=== PATIENT | male | born 1960 | race Caucasian/White ===

== ENCOUNTER 2019-01-01 17:51 | Emergency (ER) | payer MEDICAID, OTHER, SELFPAY ==
[~2019-01-01] VITALS: Ht 177.8 cm; Wt 99.0 kg
--- NOTE | 2019-01-01 18:20 | REPVR ---
EXAM: CT Head Without Contrast EXAM DATE/TIME: 01/01/2019 6:04 PM CLINICAL HISTORY: 58 years old, male; Signs and symptoms; Other: CVA symptoms; Additional info: ? CVA symptoms TECHNIQUE: Imaging protocol: Axial computed tomography images of the head/brain without contrast. Radiation optimization: All CT scans at this facility use at least one of these dose optimization techniques: automated exposure control; mA and/or kV adjustment per patient size (includes targeted exams where dose is matched to clinical indication); or iterative reconstruction. Other technique: STROKE PROTOCOL was implemented. COMPARISON: No relevant prior studies available. FINDINGS: Brain: Mild periventricular and deep white matter hypodensities are suggestive of chronic microvascular ischemic changes. There is age-related diffuse cortical atrophy with compensatory ventricular and sulcal enlargement. There is no intracranial hemorrhage. Ventricles: Normal. No ventriculomegaly. Bones/joints: Unremarkable. No acute fracture. Sinuses: Visualized sinuses are unremarkable. No acute sinusitis. Mastoid air cells: Visualized mastoid air cells are unremarkable. No mastoid effusion. Soft tissues: Unremarkable. Vasculature: Intracranial vascular calcifications are present. IMPRESSION: No acute intracranial abnormality. ASSESSMENT: ASPECTS ([place] Stroke Program Early CT Score) is 10. Electronically signed by: Beverly Shea On 01/01/2019 18:20:06 PM
[2019-01-01] MEDS ORDERED: ISOVUE-370 76% 100ML VIAL (Q9967) As Ordered ONE (18:40)
[2019-01-01 18:43] LABS: BASO # 0.1 10^3/uL (0.0-0.2); BASO % 0.6 % (0.0-1.0); EOS # 0.2 10^3/uL (0.0-0.50); HEMATOCRIT 50.3 % (42.0-52.0); HEMOGLOBIN 17.8 g/dl (13.5-17.5); LYMPH # 2.8 10^3/uL (1.5-4.5); LYMPH % 28.2 % (24.0-44.0); MEAN CORPUSCULAR HEMOGLOBIN 32.4 pg (27.0-33.0); MEAN CORPUSCULAR HGB CONC 35.4 g/dl (32.0-36.5); MEAN CORPUSCULAR VOLUME 91.5 fl (80.0-96.0); MONO # 0.7 10^3/uL (0.0-0.8); MONO % 7.3 % (0.0-5.0); NEUTROPHILS # 6.2 10^3/uL (1.8-7.7); NEUTROPHILS % 61.6 % (36.0-66.0); PLATELET COUNT, AUTOMATED 269 10^3/uL (150-450); WHITE BLOOD COUNT 10.1 10^3/uL (4.0-10.0)
[2019-01-01 18:52] LABS: INR 1.04; PROTHROMBIN TIME 13.7 SECONDS (12.1-14.4)
[2019-01-01 18:53] LABS: PARTIAL THROMBOPLASTIN TIME 30.9 SECONDS (25.4-37.6)
[2019-01-01] MEDS ORDERED: LISI10TA4 PO (18:55)
[2019-01-01 19:09] LABS: BLOOD UREA NITROGEN 13 MG/DL (7-18); CALCIUM LEVEL 9.3 MG/DL (8.5-10.1); CARBON DIOXIDE LEVEL 27 MEQ/L (21-32); CHLORIDE LEVEL 104 MEQ/L (98-107); CPK CREATINE PHOSPHOKINASE 129 U/L (39-308); CREATININE FOR GFR 0.95 MG/DL (0.70-1.30); GLOMERULAR FILTRATION RATE > 60.0 (>56); GLUCOSE, FASTING 98 MG/DL (70-100); MB/CK RELATIVE INDEX 1.71 (< OR =4); POTASSIUM SERUM 3.9 MEQ/L (3.5-5.1); SODIUM LEVEL 137 MEQ/L (136-145); TROPONIN I < 0.02 NG/ML (< 0.10)
[2019-01-01 19:13] VITALS: BP 188/100
--- NOTE | 2019-01-01 19:37 | REPVR ---
EXAM: CT Chest With Contrast EXAM DATE/TIME: 01/01/2019 6:38 PM CLINICAL HISTORY: 58 years old, male; Chest pain; Additional info: RO lvo TECHNIQUE: Imaging protocol: Axial computed tomography images of the chest with intravenous contrast. Coronal and sagittal reformatted images were created and reviewed. 3D rendering: MIP reconstructed images were created and reviewed. Radiation optimization: All CT scans at this facility use at least one of these dose optimization techniques: automated exposure control; mA and/or kV adjustment per patient size (includes targeted exams where dose is matched to clinical indication); or iterative reconstruction. Contrast material: ISOVUE 370; Contrast volume: 100 ml; Contrast route: IV; COMPARISON: No relevant prior studies available. FINDINGS: Lungs: There is bilateral centrilobular and paraseptal emphysema. Biapical pleural-parenchymal scarring is noted. There is minimal dependent atelectasis posteriorly. Pleural space: No pleural effusion or pneumothorax. Heart: The heart is normal. There is left ventricular hypertrophy. There is no pericardial effusion. Aorta: Normal. No aortic aneurysm. Lymph nodes: Calcified subcarinal and hilar lymph nodes are noted. Bones/joints: There are degenerative changes of the thoracic line. There is no acute fracture. Mild compression deformity of the T6 vertebral body is chronic in appearance. There is a deformity of the lower sternum which also appears chronic/posttraumatic. There is a remote fracture of the right posterior-lateral seventh rib. Soft tissues: Unremarkable. Kidneys and ureters: There is a subcentimeter hypodensity in the left kidney which is too small to accurately characterize. IMPRESSION: 1. No acute abnormality of the chest. 2. Centrilobular and paraseptal emphysema with biapical pleural-parenchymal scarring. No acute consolidative process. Electronically signed by: Beverly Shea On 01/01/2019 19:36:17 PM
--- NOTE | 2019-01-01 19:38 | REPVR ---
EXAM: CT Angiography Neck With Contrast EXAM DATE/TIME: 01/01/2019 6:38 PM CLINICAL HISTORY: 58 years old, male; Signs and symptoms; Weakness; Additional info: Left wkness TECHNIQUE: Imaging protocol: Axial computed tomographic angiography images of the neck with intravenous contrast using CT angiography protocol. Coronal and sagittal reformatted images were created and reviewed. 3D rendering: MIP and 3D reconstructed images were created and reviewed. Radiation optimization: All CT scans at this facility use at least one of these dose optimization techniques: automated exposure control; mA and/or kV adjustment per patient size (includes targeted exams where dose is matched to clinical indication); or iterative reconstruction. Contrast material: ISOVUE 370; Contrast volume: 100 ml; Contrast route: IV; COMPARISON: No relevant prior studies available. FINDINGS: VASCULATURE: Right common carotid artery: Normal. No significant stenosis. No dissection or occlusion. Right internal carotid artery: . There is mild atherosclerotic plaque with less than 50% stenosis. No dissection or occlusion. Right external carotid artery: Normal. No occlusion or significant stenosis. Right vertebral artery: Normal. No significant stenosis. No dissection or occlusion. Left common carotid artery: Normal. No significant stenosis. No dissection or occlusion. Left internal carotid artery: There is mild to moderate atherosclerotic plaque with approximately 50% stenosis. No dissection or occlusion. Left external carotid artery: Normal. No occlusion or significant stenosis. Left vertebral artery: Normal. No significant stenosis. No dissection or occlusion. NECK: Bones/joints: No acute fracture. Mucous retention cysts of the left maxillary sinus. There is multilevel cervical degenerative disc disease. Soft tissues: Normal. No significant soft tissue swelling. Lungs: There is centrilobular emphysema of the lung apices with biapical pleural-parenchymal scarring. IMPRESSION: 1. No acute findings. 2. Moderate (approximately 50%) stenosis of the left internal carotid artery. 3. Mild (less than 50%) stenosis of the right internal carotid artery. COMMENT: Reference per NASCET criteria for degree of stenosis: Mild: less than 50% stenosis. Moderate: 50-69% stenosis. Severe: 70-94% stenosis. Near occlusion: 95-99% stenosis. Electronically signed by: Beverly Shae On 01/01/2019 19:36:26 PM
--- NOTE | 2019-01-01 19:41 | REPVR ---
EXAM: CT Angiography Head With Contrast EXAM DATE/TIME: 01/01/2019 6:38 PM CLINICAL HISTORY: 58 years old, male; Signs and symptoms; Weakness; Additional info: RO lvo TECHNIQUE: Imaging protocol: Axial computed tomographic angiography images of the head with intravenous contrast using CT angiography protocol. Coronal and sagittal reformatted images were created and reviewed. 3D rendering: MIP and 3D reconstructed images were created and reviewed. Radiation optimization: All CT scans at this facility use at least one of these dose optimization techniques: automated exposure control; mA and/or kV adjustment per patient size (includes targeted exams where dose is matched to clinical indication); or iterative reconstruction. Contrast material: ISOVUE 370; Contrast volume: 100 ml; Contrast route: IV; COMPARISON: CT Head without contrast 01/01/2019 6:02 PM FINDINGS: Right internal carotid artery: Minimal atherosclerotic calcification of the cavernous segment. Intracranial segment is patent with no significant stenosis. No aneurysm. Right anterior cerebral artery: Unremarkable. No occlusion or significant stenosis. No aneurysm. Right middle cerebral artery: Unremarkable. No occlusion or significant stenosis. No aneurysm. Right posterior cerebral artery: Unremarkable. No occlusion or significant stenosis. No aneurysm. Right vertebral artery: Unremarkable. No occlusion or significant stenosis. No aneurysm. Left internal carotid artery: Minimal atherosclerotic calcification of the cavernous segment. Intracranial segment is patent with no significant stenosis. No aneurysm. Left anterior cerebral artery: Unremarkable. No occlusion or significant stenosis. No aneurysm. Left middle cerebral artery: Unremarkable. No occlusion or significant stenosis. No aneurysm. Left posterior cerebral artery: There is significant attenuation of the left posterior cerebral artery beyond the P2 segment. Left vertebral artery: Unremarkable. No occlusion or significant stenosis. No aneurysm. Basilar artery: Unremarkable. No occlusion or significant stenosis. No aneurysm. IMPRESSION: 1. There is significant low-attenuation in the left [employer] beyond the P2 segment consistent with severe, flow limiting stenosis. 2. Minimal atherosclerotic disease of the cavernous ICAs, but otherwise no significant abnormality of the anterior circulation. Electronically signed by: Beverly Shea On 01/01/2019 19:41:04 PM
--- NOTE | 2019-01-01 19:49 | REP ---
PORTABLE CHEST: AP portable view of the chest was performed. There are no prior studies for comparison. There is mild biapical pleural and parenchymal scarring with mild bibasilar interstitial fibrotic change. I see no acute infiltrate. The heart is not enlarged. The mediastinal silhouette is otherwise unremarkable. Old right rib fracture is noted. IMPRESSION: Chronic findings. No acute infiltrate. Electronically Signed by Hebert Pinto MD 01/03/2019 10:00 A
--- NOTE | 2019-01-02 23:09 | ECGEPIP ---
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
== END 2019-01-01 19:16 | disposition short-term general hospital (02) ==
LOC: M ED 17:51
DX: I63.9 Cerebral infarction, unspecified (principal); I10 Essential (primary) hypertension; R29.704 NIHSS score 4; Z85.118 Personal history of other malignant neoplasm of bronchus and lung; Z85.818 Personal history of malignant neoplasm of other sites of lip, oral cavity, and pharynx; Z85.820 Personal history of malignant melanoma of skin; F17.210 Nicotine dependence, cigarettes, uncomplicated; Z79.899 Other long term (current) drug therapy
CPT/HCPCS: 36415; 70450; 70496; 70498; 71045; 71260; 80048; 82550; 82553; 85025; 85610; 85730; 86850; 86900; 86901; 93005; 93041; 94760; 99285; Q9967

== ENCOUNTER 2019-01-03 11:35 | Inpatient (IN) | payer MEDICAID, OTHER, SELFPAY ==
[~2019-01-03] VITALS: Ht 177.8 cm; Wt 97.5 kg
[~2019-01-03 11:35] MED LIST: LISI10TA4 PO
[2019-01-03] MEDS ORDERED: EXCETAB33 PO (11:43)
[2019-01-03 12:17] LABS: BASO % 0.4 % (0.0-1.0); EOS # 0.1 10^3/uL (0.0-0.50); EOS % 0.9 % (0.0-3.0); HEMATOCRIT 49.9 % (42.0-52.0); HEMOGLOBIN 17.7 g/dl (13.5-17.5); LYMPH # 2.7 10^3/uL (1.5-4.5); LYMPH % 23.3 % (24.0-44.0); MEAN CORPUSCULAR HEMOGLOBIN 32.7 pg (27.0-33.0); MEAN CORPUSCULAR HGB CONC 35.5 g/dl (32.0-36.5); MEAN CORPUSCULAR VOLUME 92.2 fl (80.0-96.0); MONO # 0.6 10^3/uL (0.0-0.8); MONO % 5.5 % (0.0-5.0); NEUTROPHILS # 7.9 10^3/uL (1.8-7.7); NEUTROPHILS % 69.5 % (36.0-66.0); PLATELET COUNT, AUTOMATED 262 10^3/uL (150-450); RED BLOOD COUNT 5.41 10^6/uL (4.30-6.10); WHITE BLOOD COUNT 11.4 10^3/uL (4.0-10.0)
--- NOTE | 2019-01-03 12:43 | REP ---
CT Head without contrast HISTORY: Neurologic symptoms COMPARISON: 01/01/2019 An area of decreased attenuation is present in the posteromedial left temporal lobe posterior left parietal and left occipital lobes. There is mass effect with partial effacement of the overlying cortical sulci and atrium and occipital horn of the left lateral ventricle. This represents an acute infarction. There is no intraparenchymal hemorrhage, mass or midline shift. The ventricular system is normal in appearance. There is no extra cerebral collection. There is no fracture. The visualized sinuses are clear. IMPRESSION: Acute left temporal parietal occipital lobe infarction. There is no hemorrhage. Electronically Signed by Ron Jeter MD 01/03/2019 12:35 P
[2019-01-03 12:46] LABS: INR 1.2; PROTHROMBIN TIME 15.4 SECONDS (12.1-14.4)
[2019-01-03 12:47] LABS: PARTIAL THROMBOPLASTIN TIME 31.2 SECONDS (25.4-37.6)
[2019-01-03 12:53] LABS: BLOOD UREA NITROGEN 20 MG/DL (7-18); CALCIUM LEVEL 9.2 MG/DL (8.5-10.1); CARBON DIOXIDE LEVEL 25 MEQ/L (21-32); CHLORIDE LEVEL 102 MEQ/L (98-107); CPK CREATINE PHOSPHOKINASE 89 U/L (39-308); GLOMERULAR FILTRATION RATE > 60.0 (>56); GLUCOSE, FASTING 144 MG/DL (70-100); MB/CK RELATIVE INDEX 1.24 (< OR =4); POTASSIUM SERUM 3.9 MEQ/L (3.5-5.1); SODIUM LEVEL 138 MEQ/L (136-145)
[2019-01-03 12:54] LABS: TROPONIN I < 0.02 NG/ML (< 0.10)
[2019-01-03] MEDS ORDERED: NICOTINE 21MG/24HR 1 EA TRANSDERMAL TD ONE (14:00)
[2019-01-03] MEDS ORDERED: ASPIRIN 325 MG TAB PO ONE (14:15)
--- NOTE | 2019-01-03 16:07 | HPE ---
DATE OF ADMISSION: 01/03/2019 PRIMARY CARE PROVIDER: None. Patient recently moved from [place] to [place] since December last year. HISTORY OF PRESENT ILLNESS: The patient is a 58-year-old gentleman with a past medical history significant for hypertension, throat cancer, lung cancer, who presented to [facility] on 01/01/2019 around 6 p.m. with neurological symptoms. At the time, patient was found to have acute stroke, and patient was transferred to [facility] for further evaluation and treatment; however, patient signed himself out around 6 hours later. Patient presented to [facility] on 01/03/2019 due to persistence of the left-sided visual changes. CT imaging was performed. Patient was found to have acute left-sided cerebrovascular accident (CVA), and the hospitalist team was called for admission. According to patient, patient used to follow with a primary care provider in [place]. Patient has a history of lung cancer and throat cancer. He does not remember if there was a biopsy performed in the past, and patient denies any surgical intervention in the past. Patient denied any chemotherapy in the past. At the time of encounter, patient did complain about the right visual field disturbance, and it has been persistent since January 01. Denied any other neurological changes. Denied any acute complaints. PAST MEDICAL HISTORY: 1. Hypertension. 2. Throat cancer. 3. Lung cancer. PAST SURGICAL HISTORY: None. ALLERGIES: None. HOME MEDICATIONS: Lisinopril and as-needed hydrocodone. SOCIAL HISTORY: Smokes one to two packs daily for more than 40 years. Drinks alcohol occasionally. Denied recreational drug use. REVIEW OF SYSTEMS: GENERAL: No fever. No chills. HEENT: No new onset of headache. Denied any head trauma. CARDIOVASCULAR: No chest pain. No palpitations. RESPIRATORY: No shortness of breath. No cough. No sputum production. GASTROINTESTINAL: No nausea. No vomiting. No abdominal pain. No diarrhea. MUSCULOSKELETAL: Denied muscle pain or joint pain. NEUROLOGIC: Patient complained about new onset of right-sided visual field disturbance. It started since January 01 and no improvement since. Denied any new neurological changes. OBJECTIVE: VITAL SIGNS: Temperature is 98.2, pulse is 95, respirations 20, blood pressure 139/88, pulse oximetry 96% in room air. GENERAL: Patient is alert and awake, comfortable. HEENT: Normocephalic, atraumatic. Extraocular motor grossly intact. CARDIOVASCULAR: Positive S1, S2, regular rate. LUNGS: Clear to auscultation bilaterally. ABDOMEN: Soft, nontender, nondistended. Bowel sounds present. EXTREMITIES: No edema appreciated. 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 The right medial visual field is intact. Sensation to fine touch grossly intact. Muscle strength 5/5. Cranial nerves II-XII grossly intact. LABORATORY DATA: WBC 11.4, hemoglobin 17.7, hematocrit 47.9, platelet count is 262. Sodium is 138, potassium 3.9, chloride 102, carbon dioxide 25, BUN 20, creatinine 1.1, GFR greater than 60, fasting glucose 144, calcium 9.2. Total CK is 89, troponin I is less than 0.02. PT is 15.4, INR 12.2. IMAGING STUDIES: CT of the head without contrast from 01/03/2019 demonstrated acute left temporoparietal occipital lobe infarction. No hemorrhages. CT angiogram of the neck from 01/01/2019 demonstrated no acute findings. Moderate stenosis of the left internal carotid artery. Mild stenosis of the right internal carotid artery. 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 CT of the chest with contrast on 01/01/2019 demonstrated no acute abnormality of the chest. Centrolobular and paraseptal emphysema with biapical pleural parenchymal scarring. No acute consolidative process. ASSESSMENT AND PLAN: 1. Acute left temporoparietal occipital lobe infarction. Patient will be admitted under the hospitalist service in the progressive care unit (PCU) under inpatient status. MRI/MRA are ordered. Neurology consulted. Patient received aspirin in the emergency room. Followup with echocardiogram. Continue cardiac telemetry. According to patient, patient does have a history of lung cancer and throat cancer. Will try to verify the details of the information. Patient also has a significant tobacco abuse history. Followup with liver panel. 2. Hypertension. At baseline patient is receiving lisinopril. Due to acute stroke, will hold the blood pressure medication at this moment. 3. Hypertension. Blood pressure medication will be on hold. 4. Tobacco abuse. Nicotine patch ordered. 5. Deep vein thrombosis (DVT) prophylaxis, on heparin.
[2019-01-03 16:15] LABS: CHOLESTEROL LEVEL 228 MG/DL (<200); HDL CHOLESTEROL 40 MG/DL (>40); LDL CHOLESTEROL 157 MG/DL (<100); NON-HDL-C 188 MG/DL; TRIGLYCERIDES LEVEL 156 MG/DL (<150)
--- NOTE | 2019-01-03 17:04 | REP ---
CAROTID ULTRASOUND: Real-time ultrasound evaluation and duplex Doppler interrogation of the extracranial carotid vasculature is performed. There is mild plaquing and narrowing in both carotid bulbs extending into the internal and external carotid arteries. Luminal narrowing is less than 50%. There is no evidence of hemodynamically significant stenosis of either internal carotid artery. Normal flow velocities are seen. The vertebral arteries demonstrate normal direction of flow. RIGHT LEFT Peak systolic velocity ICA 75.9 cm/s 73.5 cm/s End diastolic velocity ICA 29.6 cm/s 26.6 cm/s Peak systolic velocity CCA 77.1 cm/s 107 cm/s Peak systolic velocity ECA 68.1 cm/s 90.2 cm/s ICA/CCA ratio 1.0 0.7 IMPRESSION: Bilateral luminal narrowing of the internal carotid arteries less than 50%. No evidence of hemodynamically significant stenosis. Electronically Signed by Hebert Pinto MD 01/03/2019 04:56 P
--- NOTE | 2019-01-03 17:28 | REP ---
MRA BRAIN WITHOUT CONTRAST: HISTORY: Infarction. 3D [id number] MR angiography was performed at the level of the [facility] [place]. COMPARISON: CTA 01/01/2019 There is no aneurysm or arteriovenous malformation. Mild atherosclerotic disease involves the cavernous internal carotid arteries. There is loss of the normal hyperintense signal in the proximal P2 segment of the left posterior cerebral artery. This is consistent with severe stenosis. The remaining major intracranial vessels are patent. The left vertebral artery is dominant. IMPRESSION: 1. There is no aneurysm or arteriovenous malformation. 2. There is loss of the normal hyperintense signal in the proximal P2 segment of the left posterior cerebral artery consistent with severe stenosis. There is no change compared to the previous study. Electronically Signed by Ron Jeter MD 01/03/2019 05:30 P
--- NOTE | 2019-01-03 17:36 | REP ---
MR BRAIN WITHOUT CONTRAST: HISTORY: Infarction. COMPARISON: CT 01/03/2019 Increased signal intensity on diffusion and T2 weighted images is present in the inferomedial left temporal lobe, posterior left parietal lobe, left occipital lobe and left thalamus. This is decreased in signal intensity on ADC images and is consistent with an acute infarction. There is no hemorrhage. There is mass effect with partial effacement of the overlying cortical sulci and atrium and occipital horn of the left lateral ventricle. Areas of increased signal intensity on T2 weighted images are present in the periventricular and subcortical white matter. This represents small vessel ischemic disease. There is no intraparenchymal hemorrhage, mass or midline shift. The ventricular system is normal in appearance. There is no extracerebral collection. A retention cyst is present in the left maxillary sinus. IMPRESSION:1. Acute left temporal, parietal and occipital lobe and left thalamic infarction. There is no hemorrhage or midline shift. 2. Small vessel ischemic disease. Electronically Signed by Ron Jeter MD 01/03/2019 05:38 P
[2019-01-03] MEDS: HEPARIN SOD (PORCINE) 5000 UNITS/ML VIAL SC SCH (22:00)
--- NOTE | 2019-01-03 22:17 | ECGEPIP ---
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
[2019-01-04] MEDS: HEPARIN SOD (PORCINE) 5000 UNITS/ML VIAL SC SCH (05:59)
[2019-01-04 07:53] LABS: HEMATOCRIT 51.9 % (42.0-52.0); HEMOGLOBIN 17.9 g/dl (13.5-17.5); MEAN CORPUSCULAR HEMOGLOBIN 31.9 pg (27.0-33.0); MEAN CORPUSCULAR HGB CONC 34.5 g/dl (32.0-36.5); MEAN CORPUSCULAR VOLUME 92.5 fl (80.0-96.0); PLATELET COUNT, AUTOMATED 259 10^3/uL (150-450); RED BLOOD COUNT 5.61 10^6/uL (4.30-6.10); WHITE BLOOD COUNT 8.3 10^3/uL (4.0-10.0)
[2019-01-04 08:16] LABS: BLOOD UREA NITROGEN 17 MG/DL (7-18); CARBON DIOXIDE LEVEL 23 MEQ/L (21-32); CHLORIDE LEVEL 106 MEQ/L (98-107); CREATININE FOR GFR 0.98 MG/DL (0.70-1.30); GLOMERULAR FILTRATION RATE > 60.0 (>56); GLUCOSE, FASTING 119 MG/DL (70-100); SODIUM LEVEL 136 MEQ/L (136-145)
[2019-01-04] MEDS: NICOTINE 21MG/24HR 1 EA TRANSDERMAL TD SCH (09:00)
[2019-01-04] MEDS: ASPIRIN 81 MG CHEW TABLET PO SCH (09:10)
[2019-01-04] MEDS: ATORVASTATIN 20 MG TAB PO SCH (09:12)
--- NOTE | 2019-01-04 15:00 | IPN ---
DATE: 01/04/2019 SUBJECTIVE: Patient is seen and examined in the room today. Patient still has a right visual field complaint of blindness. Denies any other neurological symptoms. OBJECTIVE: VITAL SIGNS: Temperature is 97.7, pulse is 87, respiratory rate 20, blood pressure is 139/84, pulse oximetry is 95% in room air. GENERAL: Patient is alert and awake, comfortable. HEENT: Normocephalic, atraumatic. Extraocular motor grossly intact. CARDIOVASCULAR: Positive S1, S2, regular rate. LUNGS: Clear to auscultation bilaterally. ABDOMEN: Soft, nontender. Bowel sounds present. EXTREMITIES: No edema. NEUROLOGICAL: Patient has a compromised right temporal visual field and compromised left medial visual field. Muscle strength grossly intact. Sensation to fine touch grossly intact. LABORATORY DATA: WBC 8.3, hemoglobin 17.9, hematocrit 51.9, platelet count is 259. Sodium is 136, potassium 4, chloride 106, carbon dioxide 23, BUN 17, creatinine 0.98, GFR greater than 60, fasting glucose 119, calcium is 9, magnesium 2. ASSESSMENT AND PLAN: 1. Acute left temporoparietal and occipital lobe and left thalamic infarct. Patient is continued on the cardiac telemetry. MRA of the brain demonstrates acute left temporoparietal and occipital lobe and left thalamic infarct. No hemorrhages or midline shift. MRA of the brain without contrast demonstrates loss of normal hyperintense signal in the proximal P2 segment of the left posterior cerebral artery (HR ANALYST) consistent with severe stenosis. Discussed with neurologist. Due to the severe stenosis of the HR ANALYST, patient will need to be on aspirin and Plavix. Patient will continue with the physical therapy. Patient should not be driving due to the right visual field compromise. 2. History of hypertension. Currently, patient is not on blood pressure medications. Blood pressure in the satisfactory range. 3. History of throat and lung cancer. History obtained from the patient. We do not have a prior record. Outpatient record requested. During this admission, patient did have a CT chest with contrast. Patient was found to have bilateral central lobular and paraseptal emphysema but no nodule or masses noted. Patient does have calcified subcarinal and hilar lymph nodes. Recommend continue outpatient followup. 4. Tobacco abuse. Nicotine patch ordered. 5. Deep vein thrombosis (DVT) prophylaxis, on heparin.
[2019-01-04 16:27] VITALS: BP 149/90
--- NOTE | 2019-01-04 17:00 | CR ---
DATE OF CONSULTATION: 01/04/2019 REASON FOR CONSULTATION: Acute stroke. REFERRING PROVIDER: Dr. Bouchra Mathis HISTORY OF PRESENT ILLNESS: Ga Cummings is a 58-year-old male with a past medical history significant for hypertension, history of throat cancer status post resection, history of lung cancer. The patient presented to [facility] on 01/01/2019 around 5:50 p.m. with stroke symptom onset of 1 p.m.. The patient was transferred from [facility] for evaluation for acute management. The patient arrived at the hospital at [facility], signed himself out against medical advice 6 hours later. The patient presented with persistent symptoms of loss of vision, confusion. The patient was noted to have evidence of a left posterior cerebral artery ([employer]) territorial stroke on head CT. On the initial evaluation on January 01, the CT angiogram showed an occlusion of the [employer]. The patient was placed on aspirin therapy during this admission as well as statin therapy. Since it is day 3 of his stroke, blood pressure will remain 140-180 for today and then become normalized from tomorrow. He will require telemetry monitoring, echocardiogram. The patient will benefit from further clarification regarding the carotid angiogram study, whether the patient has a severe stenosis in the P2 segment versus occlusion. If the patient does have severe stenosis would recommend dual-antiplatelet therapy, including low-dose 81 mg aspirin, Plavix 75 mg daily, in addition to high-dose statin therapy. The patient has been requested to stop smoking. He smokes about two packs of tobacco per day. REVIEW OF SYSTEMS: A 14-point review of systems obtained and is negative except as per history of present illness (HPI) PAST MEDICAL HISTORY: 1. Hypertension. 2. Throat cancer. 3. Lung cancer. PAST SURGICAL HISTORY: None. ALLERGIES: No known drug allergies. HOME MEDICATIONS: Lisinopril, hydrochlorothiazide as needed SOCIAL HISTORY: The patient smokes two packs of tobacco per day and denies any alcohol use. REVIEW OF SYSTEMS: A 14-point review of symptoms is obtained and is negative except as per HPI. PAST SURGICAL HISTORY: Surgery for throat cancer, lung cancer. FAMILY HISTORY: Noncontributory. PHYSICAL EXAMINATION: Blood pressure is 139/88, pulse rate is 95, respiratory rate is 20, temperature is 98.2 degrees Fahrenheit oxygenation 96% on room air. The patient is awake, alert, oriented person, place, and time. Speech, language, comprehension, repetition are intact. Pupils are 3 mm round, reactive to light. Visual field cuts are obvious with right-sided homonymous hemianopsia. Current height 5 feet 10 inches, current weight 88 kg. Tongue is midline. No weakness of sternocleidomastoids bilaterally. Hearing is subjectively equal to finger rub. Sensation in V1, V2, V3 is intact to light touch. There is no pronator drift. Strength is 5/5, including bilateral deltoids, biceps, triceps, handgrip, iliopsoas, quadriceps, anterior tibialis. Deep tendon reflexes are 2's throughout. Babinski signs are absent. Romberg testing is negative. Sensory is intact to light touch in all four extremities. Coordination: Normal [id number] without any signs of ataxia or dysmetria. ASSESSMENT: Left posterior cerebral artery ([employer]GER) acute stroke with left [employer] severe stenosis. PLAN: Start aspirin 81 mg daily, Plavix 75 mg daily. Start statin 80 mg by mouth daily. Continue telemetry monitoring, physical therapy (PT)/occupational therapy (OT) evaluation. Ultrasound of the carotids completed showing bilateral luminal narrowing of 50% without any hemodynamically significant stenosis. Smoking cessation counseling recommended to the patient. The patient can followup in the neurology clinic 4-6 weeks after discharge.
[2019-01-04] MEDS: CLOPIDOGREL 75 MG TAB PO SCH (17:01)
[2019-01-04 20:00] VITALS: BP 138/62
[2019-01-04 23:59] VITALS: BP 146/86
[2019-01-05 04:00] VITALS: BP 157/73
[2019-01-05 05:26] LABS: HEMATOCRIT 49.5 % (42.0-52.0); MEAN CORPUSCULAR HEMOGLOBIN 31.8 pg (27.0-33.0); MEAN CORPUSCULAR HGB CONC 34.3 g/dl (32.0-36.5); MEAN CORPUSCULAR VOLUME 92.7 fl (80.0-96.0); PLATELET COUNT, AUTOMATED 235 10^3/uL (150-450); RED BLOOD COUNT 5.34 10^6/uL (4.30-6.10); WHITE BLOOD COUNT 8.8 10^3/uL (4.0-10.0)
[2019-01-05 05:54] LABS: BLOOD UREA NITROGEN 17 MG/DL (7-18); CALCIUM LEVEL 8.8 MG/DL (8.5-10.1); CARBON DIOXIDE LEVEL 26 MEQ/L (21-32); CHLORIDE LEVEL 107 MEQ/L (98-107); GLOMERULAR FILTRATION RATE > 60.0 (>56); GLUCOSE, FASTING 96 MG/DL (70-100); POTASSIUM SERUM 4.1 MEQ/L (3.5-5.1); SODIUM LEVEL 138 MEQ/L (136-145)
--- NOTE | 2019-01-05 07:49 | ECHO ---
DATE OF PROCEDURE: 01/04/2019 REFERRING PHYSICIAN: Dr. Mathis INDICATION: Cerebrovascular accident. Height 178 cm Weight 89 kg. Dimensions: IVS 1.1 LV 4.8 LVPW1.1 LA 3.5 Aorta 3.5 IVC 1.7 Mitral E wave velocity 67, A-wave 80 E prime septal 6.2, E prime lateral 7.9 FINDINGS: The study is of fair technical quality. The patient is in sinus rhythm. Left ventricle is of normal size. There is likely normal LV systolic function based on limited views. Right ventricle appears normal. Both atria appear normal. There are mild degenerative abnormalities of mitral and aortic valves but mobility of leaflets is preserved in both cases. Tricuspid and pulmonic valves appear normal based on very limited views. No pericardial effusion is noted. Inferior vena cava is normal size. Aortic root is normal. Aortic arch and abdominal aorta were not well seen. Doppler interrogation reveals no aortic stenosis or insufficiency. Same applies for mitral and tricuspid valves. Mitral inflow pattern and tissue Doppler imaging of mitral annulus reveal grade 1 diastolic dysfunction. CONCLUSIONS: 1. Study is of limited technical quality. 2. Normal LV size and systolic function, grade 1 diastolic dysfunction. 3. No hemodynamically significant valvular disease. 4. Likely normal central venous pressure. 5. Unable to estimate pulmonary artery pressure. COMMENT: SBE prophylaxis is not recommended. No obvious findings to explain etiology of CVA. MTDD
[2019-01-05 08:00] VITALS: BP 130/65
[2019-01-05] MEDS: ASPIRIN 81 MG CHEW TABLET PO SCH (08:23)
[2019-01-05] MEDS: CLOPIDOGREL 75 MG TAB PO SCH (08:23)
[2019-01-05] MEDS: NICOTINE 21MG/24HR 1 EA TRANSDERMAL TD SCH (08:23)
[2019-01-05] MEDS: ATORVASTATIN 20 MG TAB PO SCH (08:23)
[2019-01-05] MEDS ORDERED: LORazepam 2 MG/ML VIAL (J2060) As Ordered ONE (10:48)
[2019-01-05] MEDS ORDERED: ATOR1TAB21 PO (11:14)
[2019-01-05] MEDS ORDERED: ASPI81CH8 PO (11:14)
[2019-01-05] MEDS ORDERED: CLOP75TA2 PO (11:14)
[2019-01-05] MEDS ORDERED: LORazepam 2 MG/ML VIAL (J2060) IV ONE (11:30)
[2019-01-05 12:00] VITALS: BP 158/92
--- NOTE | 2019-01-08 07:34 | DSES ---
DATE OF ADMISSION: 01/03/2019 DATE OF AMA/DISCHARGE: 01/05/2019 CONSULTANTS: Neurologist. Psychiatrist. PRIMARY CARE PROVIDER: None. DISCHARGE DIAGNOSES: Acute left temporal, parietal, and occipital lobe and left thalamic infarct. Hypertension. History of throat and lung cancer. Tobacco abuse. HOSPITALIZATION COURSE: The patient is a 58-year-old man who presented to [facility] on January 03, 2019 with a complaint of persistent right eye visual field deficit. Patient initially presented to [facility] emergency room on January 01, 2019 with complaint of visual deficit. Diagnostics were performed and the patient was found to have an acute stroke and the patient was transferred to [facility] emergency for acute stroke management. Shortly after the patient arrived at [facility] emergency room, the patient decided to sign out against medical advice (AMA). No significant workup or diagnostic tests were performed at [facility]. The patient came to [facility] on January 03, 2019 with complaint of persistent right visual field deficit. The patient finally agreed to stay in the hospital for further evaluation and workup. Repeat imaging was ordered and performed and the neurology was consulted. The patient was found to have an acute left temporal, parietal and occipital lobe and left thalamic infarction. Imaging also demonstrated severe stenosis of the left posterior cerebral artery. Findings were discussed with the consulting neurologist and the patient was started on dual antiplatelet regimen for the severe stenosis. Later, further diagnostic workup became available and findings were discussed with the patient. 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 In the next several hours, there were moments the patient demonstrated some signs of confusion. There was some concern for the patient's mental status. Therefore, psychiatry was consulted. Multiple discussions occurred with the patient and his girlfriend who has been taking care of the patient since last year after he moved to [place], [place]. There are multiple incidents where the patient demonstrated capacity to make his own decisions and the girlfriend stated he understands his new stroke and the changes that she need to adapt; however, she feels comfortable taking care of the patient at home, and the patient signed out AMA after explaining to him the risks and benefits of the hospitalization. The patient recently moved from [place] to [place], [place] since December 2017. The patient has not established with a primary care provider since he moved to [place]. Right before the patient signed out AMA, we tried to assist the patient to establish with a primary care provider. Medication was sent the patient the patient's pharmacy for his stroke. The patient understands that his visual deficit may not be reversible and the patient understands the importance not to operate heavy machinery or driving motor vehicles. The patient stated he will follow-up with the neurologist after he leaves the hospital. Before the patient left the hospital, the social research assistant was also called urgently to help with the patient's insurance application. Most recent vital signs temperature 98.8, pulse is 77, respirations 18, blood pressure 158/92, pulse oximetry 95% in room air. LABORATORY DATA ON DAY OF AMA: WBC 8.8, hemoglobin 17, hematocrit 49.5, platelet count 235, sodium 138, potassium 4.1, chloride 107, carbon dioxide 26, BUN 17, creatinine 0.9, GFR greater than 60, fasting glucose 96, calcium 8.8, magnesium 2. IMAGING STUDIES: CT of the head without contrast on January 03, 2019 showed acute left temporal, parietal and occipital lobe infarction. There is no hemorrhage. MRI of the brain without contrast on January 03, 2019 showed acute left temporal, parietal and occipital lobe, and left thalamic infarctions. There is no hemorrhage or midline shift. Small vessel ischemic disease. MRA of the brain without contrast on January 03, 2019 showed no aneurysm or AV malformation. Loss of normal hyperintense signal in the proximal P2 segment of the left posterior cerebral artery consistent with severe stenosis. Carotid duplex demonstrated bilateral luminal narrowing of the internal carotid artery, less than 50%. No evidence of hemodynamically significant stenosis. Echocardiogram showed limited technical quality. Normal left ventricular size and systolic function. No hemodynamically significant valvular disease. Likely normal central venous pressure. Unable to estimate pulmonary artery pressure. DISCHARGE MEDICATIONS: - aspirin 81 mg by mouth daily - Plavix 75 mg by mouth daily - atorvastatin 80 mg by mouth daily DISCHARGE INSTRUCTIONS: The patient signed out AMA. Activity as tolerated. Low salt diet as tolerated. Due to the left visual field compromise, the patient should not operate machinery, the patient should not drive motor vehicles. We established the patient with a primary care provider prior to discharge. The patient will follow-up with primary care provider within one week. The patient recommended to follow-up with neurologist in one week. DISCHARGE CONDITION: Guarded. Discharge time: Greater than 30 minutes including all the discussions with the patient and the patient's caregiver.
== END 2019-01-05 15:03 | disposition left against medical advice (07) | DRG 45 ==
LOC: M ED 11:35 → M ED INP 15:18 → M PCU 01-04 16:23
PROVIDERS: ADMIT Internal Medicine; ATTEND Internal Medicine
DX: I63.532 Cerebral infarction due to unspecified occlusion or stenosis of left posterior cerebral artery (principal); I10 Essential (primary) hypertension; F17.200 Nicotine dependence, unspecified, uncomplicated; H53.9 Unspecified visual disturbance; Z85.118 Personal history of other malignant neoplasm of bronchus and lung; Z85.819 Personal history of malignant neoplasm of unspecified site of lip, oral cavity, and pharynx; Z79.899 Other long term (current) drug therapy

== ENCOUNTER → 2019-04-25 | Outpatient (REF) | payer MEDICAID, OTHER ==
[~2019-04-25] MED LIST changes: +ASPI81CH8 PO; +ATOR1TAB21 PO; +CLOP75TA2 PO; +EXCETAB33 PO
[2019-04-25 19:17] LABS: HEMATOCRIT 49.5 % (42.0-52.0); HEMOGLOBIN 16.6 g/dl (13.5-17.5); MEAN CORPUSCULAR HEMOGLOBIN 32.2 pg (27.0-33.0); MEAN CORPUSCULAR HGB CONC 33.5 g/dl (32.0-36.5); MEAN CORPUSCULAR VOLUME 96.1 fl (80.0-96.0); PLATELET COUNT, AUTOMATED 269 10^3/uL (150-450); RED BLOOD COUNT 5.15 10^6/uL (4.30-6.10); WHITE BLOOD COUNT 10.1 10^3/uL (4.0-10.0)
[2019-04-25 19:46] LABS: ALBUMIN 3.9 GM/DL (3.2-5.2); ALT/SGPT 40 U/L (12-78); BILIRUBIN,TOTAL 0.4 MG/DL (0.2-1.0); BLOOD UREA NITROGEN 12 MG/DL (7-18); CALCIUM LEVEL 9.2 MG/DL (8.5-10.1); CARBON DIOXIDE LEVEL 29 MEQ/L (21-32); CHLORIDE LEVEL 104 MEQ/L (98-107); CHOLESTEROL LEVEL 132 MG/DL (<200); CREATININE FOR GFR 0.92 MG/DL (0.70-1.30); FREE T4 0.99 NG/DL (0.76-1.46); GLOMERULAR FILTRATION RATE > 60.0 (>56); GLUCOSE, FASTING 81 MG/DL (70-100); HDL CHOLESTEROL 44 MG/DL (>40); LDL CHOLESTEROL 66 MG/DL (<100); NON-HDL-C 88 MG/DL; POTASSIUM SERUM 4.6 MEQ/L (3.5-5.1); SODIUM LEVEL 140 MEQ/L (136-145); THYROID STIMULATING HORMONE 0.986 uIU/ML (0.358-3.740); TOTAL PROTEIN 7.3 GM/DL (6.4-8.2); TRIGLYCERIDES LEVEL 110 MG/DL (<150)
== END ==
LOC: M SFHCADAM 15:31
PROVIDERS: ATTEND Family Medicine
DX: I11.9 Hypertensive heart disease without heart failure (principal); E78.5 Hyperlipidemia, unspecified; J43.9 Emphysema, unspecified; Z12.5 Encounter for screening for malignant neoplasm of prostate

== ENCOUNTER → 2019-08-01 | Outpatient (REF) | payer OTHER, MEDICAID ==
[2019-08-01 12:45] LABS: BASO # 0.1 10^3/uL (0.0-0.2); BASO % 0.7 % (0.0-1.0); EOS # 0.4 10^3/uL (0.0-0.5); EOS % 3.7 % (0.0-3.0); HEMOGLOBIN 16.6 g/dl (13.5-17.5); LYMPH # 1.7 10^3/uL (1.5-5.0); LYMPH % 15.7 % (24.0-44.0); MEAN CORPUSCULAR HEMOGLOBIN 32.8 pg (27.0-33.0); MEAN CORPUSCULAR HGB CONC 34.6 g/dl (32.0-36.5); MEAN CORPUSCULAR VOLUME 94.9 fl (80.0-96.0); MONO # 1.1 10^3/uL (0.0-0.8); MONO % 9.7 % (0.0-5.0); NEUTROPHILS # 7.6 10^3/uL (1.5-8.5); NEUTROPHILS % 69.9 % (36.0-66.0); PLATELET COUNT, AUTOMATED 252 10^3/uL (150-450); RED BLOOD COUNT 5.06 10^6/uL (4.30-6.10); WHITE BLOOD COUNT 10.9 10^3/uL (4.0-10.0)
[2019-08-01 12:52] LABS: ALBUMIN 3.7 GM/DL (3.2-5.2); ALT/SGPT 38 U/L (12-78); BILIRUBIN,TOTAL 0.6 MG/DL (0.2-1.0); BLOOD UREA NITROGEN 16 MG/DL (7-18); CARBON DIOXIDE LEVEL 26 MEQ/L (21-32); CHLORIDE LEVEL 104 MEQ/L (98-107); CHOLESTEROL LEVEL 113 MG/DL (<200); CREATININE FOR GFR 1.05 MG/DL (0.70-1.30); FREE T4 1.04 NG/DL (0.76-1.46); GLOMERULAR FILTRATION RATE > 60.0 (>49); GLUCOSE, FASTING 101 MG/DL (70-100); HDL CHOLESTEROL 42 MG/DL (>40); LDL CHOLESTEROL 57 MG/DL (<100); NON-HDL-C 71 MG/DL; POTASSIUM SERUM 4.8 MEQ/L (3.5-5.1); SODIUM LEVEL 138 MEQ/L (136-145); TOTAL PROTEIN 7.1 GM/DL (6.4-8.2); TRIGLYCERIDES LEVEL 69 MG/DL (<150)
[2019-08-01 13:02] LABS: HEMOGLOBIN A1c 6.3 %
== END ==
LOC: M LABDRWAD 12:25
PROVIDERS: ATTEND Psychiatry & Neurology Neurology
DX: E11.9 Type 2 diabetes mellitus without complications (principal); E78.5 Hyperlipidemia, unspecified; E07.9 Disorder of thyroid, unspecified; Z86.73 Personal history of transient ischemic attack (TIA), and cerebral infarction without residual deficits

== ENCOUNTER → 2020-08-20 | Outpatient (CLI) | payer OTHER | LOC: M LABSMTC 13:03 | PROVIDERS: ATTEND Family Medicine | DX: Z11.59 Encounter for screening for other viral diseases (principal) ==

== ENCOUNTER → 2020-09-22 | Outpatient (REF) | payer OTHER ==
[2020-09-22 13:08] LABS: BASO # 0.1 10^3/uL (0.0-0.2); BASO % 0.5 % (0.0-1.0); EOS # 0.4 10^3/uL (0.0-0.5); HEMATOCRIT 47.7 % (42.0-52.0); HEMOGLOBIN 16.3 g/dl (13.5-17.5); LYMPH # 2.2 10^3/uL (1.5-5.0); LYMPH % 22.4 % (24.0-44.0); MEAN CORPUSCULAR HEMOGLOBIN 32.3 pg (27.0-33.0); MEAN CORPUSCULAR HGB CONC 34.2 g/dl (32.0-36.5); MEAN CORPUSCULAR VOLUME 94.6 fl (80.0-96.0); MONO # 0.7 10^3/uL (0.0-0.8); MONO % 7.6 % (0.0-5.0); NEUTROPHILS # 6.2 10^3/uL (1.5-8.5); PLATELET COUNT, AUTOMATED 288 10^3/uL (150-450); RED BLOOD COUNT 5.04 10^6/uL (4.30-6.10); WHITE BLOOD COUNT 9.6 10^3/uL (4.0-10.0)
[2020-09-22 13:44] LABS: ALBUMIN 3.7 GM/DL (3.2-5.2); ALT/SGPT 44 U/L (12-78); BILIRUBIN,TOTAL 0.5 MG/DL (0.2-1.0); BLOOD UREA NITROGEN 12 MG/DL (7-18); CARBON DIOXIDE LEVEL 25 MEQ/L (21-32); CHLORIDE LEVEL 106 MEQ/L (98-107); CHOLESTEROL LEVEL 154 MG/DL (<200); CREATININE FOR GFR 0.98 MG/DL (0.70-1.30); GLOMERULAR FILTRATION RATE > 60.0 (>49); GLUCOSE, FASTING 102 MG/DL (70-100); HDL CHOLESTEROL 44 MG/DL (>40); LDL CHOLESTEROL 80 MG/DL (<100); NON-HDL-C 110 MG/DL; POTASSIUM SERUM 4.7 MEQ/L (3.5-5.1); SODIUM LEVEL 137 MEQ/L (136-145); TOTAL PROTEIN 7.2 GM/DL (6.4-8.2); TRIGLYCERIDES LEVEL 149 MG/DL (<150)
== END ==
LOC: M SFHCADAM 11:21
PROVIDERS: ATTEND Family Medicine
DX: I10 Essential (primary) hypertension (principal); Z86.73 Personal history of transient ischemic attack (TIA), and cerebral infarction without residual deficits

== ENCOUNTER → 2020-11-19 | Outpatient (REF) | payer OTHER ==
[~2020-11-19] MED LIST changes: +LISI10TA22 PO; -LISI10TA4 PO
== END ==
LOC: M SFHCADAM 14:24
PROVIDERS: ATTEND Family Medicine
DX: R05 Cough (principal)

== ENCOUNTER → 2021-01-15 | Outpatient (REF) | payer OTHER | LOC: M SFHCADAM 12:05 | PROVIDERS: ATTEND Family Medicine | DX: R09.81 Nasal congestion (principal) ==

== ENCOUNTER → 2021-03-17 | Outpatient (REF) | payer OTHER ==
[2021-03-17 14:23] LABS: HIV 1&2 SCREEN CENTAUR NEGATIVE (NEGATIVE)
[2021-03-17 14:55] LABS: GC DNA AMPLIFICATION NEGATIVE (NEGATIVE)
== END ==
LOC: M SFHCADAM 07:49
PROVIDERS: ATTEND Family Medicine
DX: Z11.3 Encounter for screening for infections with a predominantly sexual mode of transmission (principal)

== ENCOUNTER → 2021-04-20 | Outpatient (CLI) | payer OTHER | LOC: M RAD 10:21 | PROVIDERS: ATTEND Psychiatry & Neurology Neurology | DX: R29.6 Repeated falls (principal); R41.1 Anterograde amnesia; R20.2 Paresthesia of skin; Z86.73 Personal history of transient ischemic attack (TIA), and cerebral infarction without residual deficits; G93.89 Other specified disorders of brain ==

== ENCOUNTER → 2021-05-22 | Outpatient (REF) | payer OTHER | LOC: M SFHCADAM 15:50 | PROVIDERS: ATTEND Family Medicine | DX: J34.89 Other specified disorders of nose and nasal sinuses (principal) ==

== ENCOUNTER → 2021-06-10 | Outpatient (REF) | payer OTHER | LOC: M SFHCADAM 13:10 | PROVIDERS: ATTEND Family Medicine | DX: R09.81 Nasal congestion (principal) ==

== ENCOUNTER → 2021-07-22 | Outpatient (CLI) | payer OTHER ==
--- NOTE | 2021-07-22 16:14 | REP ---
INDICATION: ACUTE PAIN OF BOTH SHOULDER. COMPARISON: None. TECHNIQUE: Three views of the bilateral shoulder were performed. FINDINGS: Bilateral: The acromioclavicular and glenohumeral relationships are within normal limits. There is no acute fracture or destructive osseous lesion. IMPRESSION: Within normal limits bilateral <Electronically signed by Evangelista Veras > 07/22/21 [id number]
--- NOTE | 2021-07-22 16:16 | REP ---
INDICATION: ACUTE PAIN OF BOTH KNEE TECHNIQUE: Five views each knee FINDINGS: Bilateral: The compartments are symmetric and well maintained. There is no acute fracture or destructive osseous lesion. IMPRESSION: Within normal limits bilateral <Electronically signed by Evangelista Veras > 07/22/21 [id number]
== END ==
LOC: M ADAMS 15:07
PROVIDERS: ATTEND Family Medicine
DX: M25.561 Pain in right knee (principal); M25.511 Pain in right shoulder

== ENCOUNTER → 2021-08-31 | Outpatient (REF) | payer OTHER | LOC: M SFHCADAM 12:06 | PROVIDERS: ATTEND Physician Assistant | DX: R09.81 Nasal congestion (principal) ==

== ENCOUNTER → 2021-10-27 | Outpatient (REF) | payer OTHER | LOC: M SFHCADAM 12:20 | PROVIDERS: ATTEND Physician Assistant | DX: R05.9 Cough, unspecified (principal) ==

== ENCOUNTER → 2023-11-07 | Outpatient (REF) | payer OTHER ==
[~2023-11-07] MED LIST changes: +EXCETAB32 PO; -EXCETAB33 PO
== END ==
LOC: M SFHCADAM 12:23
PROVIDERS: ATTEND Physician Assistant
DX: J44.1 Chronic obstructive pulmonary disease with (acute) exacerbation (principal)

== ENCOUNTER → 2024-05-15 | Outpatient (CLI) | payer OTHER | LOC: M RAD 14:49 | PROVIDERS: ATTEND Family Medicine | DX: F17.211 Nicotine dependence, cigarettes, in remission (principal); Z53.9 Procedure and treatment not carried out, unspecified reason ==

== ENCOUNTER → 2024-12-25 | Outpatient (REF) | payer MEDICARE | LOC: M SFHCADAM 11:33 | PROVIDERS: ATTEND Family Medicine | DX: Z12.11 Encounter for screening for malignant neoplasm of colon (principal) ==